=== PATIENT | female | born 1950 | race Caucasian/White ===

== ENCOUNTER 2017-03-23 07:29 | Emergency (ER) | payer SELFPAY ==
[2017-03-23 07:33] VITALS: BP 160/89; PULSE 68; RESP 20; TEMP 98.2; O2SAT 98
--- NOTE | 2017-03-23 08:44 | C.PDOC ---
History Of Present Illness 66-year-old female, presents to the emergency department with complaints of headache. Patient states she has been experiencing pain to right posterior head x1 year, s/p fall. Pain is intermittent in nature, and rated 3/10, described as a dull sensation. Denies nausea/vomiting, visual changes, speech changes, dizziness, any other new symptoms. No other complaints at this time. Patient reports she was seen at time of fall and had CT head that was negative. Time Seen by Provider: 03/23/17 07:52 Chief Complaint (Nursing): Headache History Per: Patient History/Exam Limitations: no limitations Onset/Duration Of Symptoms: Days Current Symptoms Are (Timing): Still Present Severity: Moderate Pain Scale Rating Of: 3 Quality: Dull Past Medical History Reviewed: Historical Data, Nursing Documentation, Vital Signs Vital Signs: Last Vital Signs Temp 98.2 F 03/23/17 07:32 Pulse 68 03/23/17 07:32 Resp 20 03/23/17 07:32 BP 160/89 H 03/23/17 07:32 Pulse Ox 98 03/23/17 08:44 Family History: States: No Known Family Hx - Social History Hx Alcohol Use: No Hx Substance Use: No - Immunization History Hx Tetanus Toxoid Vaccination: No Hx Influenza Vaccination: No Hx Pneumococcal Vaccination: No Review Of Systems Except As Marked, All Systems Reviewed And Found Negative. Constitutional: Negative for: Fever, Chills Eyes: Negative for: Vision Change Cardiovascular: Negative for: Chest Pain, Palpitations Respiratory: Negative for: Shortness of Breath Gastrointestinal: Negative for: Nausea, Vomiting Neurological: Positive for: Headache. Negative for: Weakness, Numbness, Altered Mental Status, Dizziness Physical Exam - Physical Exam Appears: Non-toxic, No Acute Distress Skin: Warm, Dry, No Rash Head: Atraumatic, Normacephalic Eye(s): bilateral: Normal Inspection, PERRL, EOMI Nose: Normal Oral Mucosa: Moist Lips: Normal Appearing Neck: Normal ROM Cardiovascular: Rhythm Regular, No Murmur Respiratory: Normal Breath Sounds, No Accessory Muscle Use Extremity: Normal ROM Neurological/Psych: Oriented x3, Normal Speech, Normal Cognition, Normal Cranial Nerves, Normal Motor, Normal Sensation, Normal Reflexes, Other (No focal deficits) ED Course And Treatment O2 Sat by Pulse Oximetry: 98 Disposition Counseled Patient/Family Regarding: Diagnosis, Need For Followup, Rx Given - Disposition Referrals: [facility] [Outside] Disposition: HOME/ ROUTINE Disposition Time: 08:41 Condition: STABLE Prescriptions: Naproxen [Naprosyn] 1 tab PO BID PRN #25 tab PRN Reason: Pain Instructions: Acute Headache (DC) Forms: Gen Discharge Inst Sinhala - POA Present On Arrival: None - Clinical Impression Clinical Impression: Headache - Scribe Statement The provider has reviewed the documentation as recorded by the Scribe (Cheyanne Burt) All medical record entries made by the Scribe were at my direction and personally dictated by me. I have reviewed the chart and agree that the record accurately reflects my personal performance of the history, physical exam, medical decision making, and the department course for this patient. I have also personally directed, reviewed, and agree with the discharge instructions and disposition.
[2017-03-23] MEDS ORDERED: Naproxen 550 mg Tab PO STA (08:46)
[2017-03-23] MEDS ORDERED: Naproxen 550 mg Tab PO ONE (08:57)
== END 2017-03-23 09:00 | disposition home or self-care (01) ==
LOC: C.ER 07:29
DX: R51 Headache (principal)